=== PATIENT | female | born 1985 | race American Indian/Alaskan Native ===

== ENCOUNTER 2019-02-06 14:45 | Emergency (ER) | payer OTHER, MEDICAID ==
[2019-02-06 15:34] VITALS: BP 152/91
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
[2019-02-06 20:27] LABS: HCG Qualitative,Urine Negative (Negative)
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
== END 2019-02-06 22:08 | disposition home or self-care (01) ==
LOC: ED 14:45
DX: M54.9 Dorsalgia, unspecified (principal); M54.2 Cervicalgia; Z79.899 Other long term (current) drug therapy; V49.49XA Driver injured in collision with other motor vehicles in traffic accident, initial encounter; Y93.89 Activity, other specified; Y92.410 Unspecified street and highway as the place of occurrence of the external cause; Y99.8 Other external cause status
CPT/HCPCS: 72040; 72100; 81025